=== PATIENT | male | born 2005 | race Caucasian/White ===

== ENCOUNTER 2024-02-23 17:24 | Emergency (ER) | payer OTHER, SELFPAY ==
--- NOTE | ~2024-02-23 | CT_ITS ---
EXAMINATION: CT HEAD WITHOUT CONTRAST CLINICAL INFORMATION: Head injury. COMPARISON: None available. TECHNIQUE: Contiguous axial imaging was performed from the skull base to vertex without intravenous administration of contrast. This CT examination was performed using dose optimization techniques as appropriate, variously including the following: *Automated exposure control *Adjustment of mA and/or kV according to patient size (this includes techniques or standardized protocols for targeted exams where dose is matched to indication/reason for exam; i.e. extremities or head) *Use of iterative reconstruction technique DLP: 651 mGy-cm FINDINGS: There is no acute intracranial hemorrhage. There is no evidence of acute/subacute cerebral or cerebellar infarction. There is no midline shift or mass effect. There is no extra-axial fluid collection. The ventricles are normal in size. The orbits are symmetric and within normal limits. The calvarium is intact. The visualized paranasal sinuses are clear. The mastoid air cells are clear. CT/CT head/brain wo IV con IMPRESSION: No acute intracranial pathology.
--- NOTE | ~2024-02-23 | CT_ITS ---
EXAMINATION: CT FACIAL BONES WITHOUT CONTRAST CLINICAL INFORMATION: Nasal bone injury COMPARISON: None available. TECHNIQUE: Noncontrast computed tomography of the facial bones was performed. This CT examination was performed using dose optimization techniques as appropriate, variously including the following: *Automated exposure control *Adjustment of mA and/or kV according to patient size (this includes techniques or standardized protocols for targeted exams where dose is matched to indication/reason for exam; i.e. extremities or head) *Use of iterative reconstruction technique DLP: 389 mGy-cm FINDINGS: There is no acute facial bone fracture. There is subcutaneous gas within the soft tissue overlying the bridge of the nose. The paranasal sinuses are well aerated. The nasal septum is deviated towards the left side. The orbits are symmetric and within normal limits. The ocular globes are intact. The visualized brain parenchyma is normal in appearance. The mastoid air cells are clear. CT/CT facial bones wo IV con IMPRESSION: No acute facial bone fracture. There is subcutaneous gas within the soft tissue overlying the bridge of the nose.
[2024-02-23 17:44] VITALS: BP 108/54; PULSE 84; RESP 16; TEMP 36.1; O2SAT 95; BMI 25.7
--- NOTE | 2024-02-23 17:47 | ED_ITS ---
HPI - Head Injury General Chief complaint: Wound/Laceration Stated complaint: nosec laceration Time Seen by Provider: 02/23/24 23:00 Source: patient and family (mom) Mode of arrival: ambulatory Limitations: no limitations History of Present Illness ED Provider: HETAL ALONSO PA-C HPI Narrative: 18 year old male with no significant past medical history presents to the ED today for evaluation laceration to nasal bridge sustained prior to arrival. Patient states that he was climbing metal stairs while at [facility] when he tripped on the last step at the top of the stairs, causing him to strike his face along the metal bar. Admits laceration to nasal bridge immediately began bleeding. Denies initial loss of consciousness however states that he passed out on the car ride to the ED. reports 1 episode of vomiting. Bleeding controlled upon arrival to ED. Mom is unsure of last tetanus vaccination. Denies headache, dizziness, vision changes, pain with eye movements, confusion, behavioral changes, difficulty breathing. Related Data Allergies Allergy/AdvReac Type Severity Reaction Status Date / Time amoxicillin AdvReac Rash Verified 02/23/24 17:47 Review of Systems 2 Review of Systems: Constitutional: No fever, chills, fatigue, night sweats, weight changes ENT/Mouth: No ear pain, hearing loss, nasal congestion, sinus pain, rhinorrhea, sore throat Eyes: No eye pain, swelling, redness, vision changes, discharge Cardio: No chest pain, palpitations, BROTHERS, orthopnea, peripheral edema Pulm: No SOB, cough, sputum, wheezing, dyspnea, hemoptysis GI: No nausea, vomiting, hematemesis, abdominal pain, diarrhea, constipation, hematochezia, melena : No irregular bleeding, dysuria, frequency, urgency, hesitancy, hematuria, flank pain, urinary flow changes, urinary incontinence or retention MSK: No back pain, neck pain, joint pain, myalgias Skin: No lesions, rashes, +nose laceration Neuro: No weakness, numbness, paresthesias, LOC, dizziness, headache Psych: No anxiety/panic, depression, SI/HI, AH/VH All other systems reviewed and are negative. [facility] Past Medical History Attestation statement: The following information was validated with the patient. Source: old records reviewed and nursing notes reviewed Social History Social History Advance Directives: No Advance Directives Information Provided: No Do you have a plan to hurt others: No Plan Physical Exam 2 Vital Signs: Vital Signs: Last Vital Signs Temp 96.9 F 02/23/24 17:44 Pulse 84 02/23/24 17:44 Resp 16 02/23/24 17:44 BP 108/54 L 02/23/24 17:44 Pulse Ox 95 02/23/24 17:44 O2 Del Method Room Air 02/23/24 17:44 BMI result Body Mass Index 25.7 Vital signs stable, afebrile. Const: General: cooperative, healthy appearing, comfortable and no acute distress Orientation/consciousness: patient oriented x3 Limitations: no limitations HEENT: Head: Yes normal to inspection and Yes No palpable skull fracture present General nose exam: Normal septum present and no epistaxis Face and sinus: Yes face symmetric, No crepitus and No Facial tenderness on exam of face and sinuses Face images: 1. 1cm linear superficial laceration noted to nasal bridge. no active bleeding. coagulated blood noted. no surrounding erythema. no deformity. Eyes: General: appearance normal, both eyes and all related structures C onjunctivae: conjunctivae normal Sclerae: sclerae normal Pupils: Equal, round and reactive pupils present EOM: EOMs intact bilaterally Neck: Other: No midline cervical spinous tenderness or step-off deformity Neck: Yes normal visual inspection and Yes full ROM Resp: Effort & Inspection: normal respiratory effort and able to speak in complete sentences Auscultation: clear to auscultation bilaterally Cardio: Rate: regular rate Rhythm: regular rhythm Skin: Other: + see above. Neuro: General: patient oriented x3, gait normal, tone normal, moves all extremities and no focal motor deficits Cranial nerves: Yes Equal, round and reactive pupils present Extrem: General: Yes normal to inspection Course Course Course Narrative: This is an RME: Additional HPI, ROS, PE not included below will be deferred to primary provider. RME assessment and note performed by: Vanessa Solis PA-C This is a 18-year-old male who presents emergency department with complaints of nose laceration and head injury which occurred around 4:00 p.m. this afternoon. Patient states he was walking up a set of stairs in the stairs above him was lower and he struck his head on the stairs and lacerated his nose. He states that he did not lose consciousness however states that he did follow up dizziness and vomiting. He states that the car ride he also lost consciousness for several seconds. There is a laceration noted to the bridge of his nose with tenderness palpation, no active bleeding Plan: CT head, CT facial bones, plus or minus stitches. Reevaluation(s) Reevaluation #1: 1125-- CT head without bleed. CT facial bones showing minimal amount of subcutaneous gas within the soft tissue overlying the bridge of the nose. On exam, there is no crepitus or deformity. Dermabond and steristrips applied to the laceration. Sutures are not warranted at this time. Patient likely has concussion. Educated on rest and hydration. Patient has remained stable throughout ED visit today. Discussed worrisome signs and symptoms and when to return to the ED. All questions answered at this time. Patient is agreeable with disposition and stable for discharge. Medical Decision Making Medical Decision Making MDM Narrative: 18 year old male with no significant past medical history presents to the ED today for evaluation laceration to nasal bridge sustained prior to arrival. Vital signs stable, afebrile. He is nontoxic-appearing and in no acute distress. AAO x3. EOMs intact without entrapment bilaterally. PERRLA. Exam nonfocal. No septal hematoma. 1cm linear superficial laceration noted to nasal bridge. no active bleeding. coagulated blood noted. no surrounding erythema. no deformity. ambulating with steady gait. no palpable skull fracture. Differential diagnosis includes concussion, headache, laceration, abrasion. Unlikely ICH, CVA/TIA, facial fracture, ocular entrapment, blow out fracture. Plan for repair, tdap booster, and discharge. Differential Diagnosis Differential Diagnoses: The differential diagnosis associated with the presentation includes as above. Admission/Observation Not indicated Independent Interpretation I performed an independent interpretation of an: CT Scan Interpretation: CT scan head/brain without bleed, agree with radiologist's interpretation. CT scan facial bones without acute fracture, agree with radiologist's interpretation. Radiology Impression Discussion of test interpretation with radiology: I have reviewed the radiologist's reading. Radiologist Impression: EXAMINATION: CT HEAD WITHOUT CONTRAST CLINICAL INFORMATION: Head injury. COMPARISON: None available. TECHNIQUE: Contiguous axial imaging was performed from the skull base to vertex without intravenous administration of contrast. This CT examination was performed using dose optimization techniques as appropriate, variously including the following: *Automated exposure control *Adjustment of mA and/or kV according to patient size (this includes techniques or standardized protocols for targeted exams where dose is matched to indication/reason for exam; i.e. extremities or head) *Use of iterative reconstruction technique DLP: 651 mGy-cm FINDINGS: There is no acute intracranial hemorrhage. There is no evidence of acute/subacute cerebral or cerebellar infarction. There is no midline shift or mass effect. There is no extra-axial fluid collection. The ventricles are normal in size. The orbits are symmetric and within normal limits. The calvarium is intact. The visualized paranasal sinuses are clear. The mastoid air cells are clear. CT/CT head/brain wo IV con IMPRESSION: No acute intracranial pathology. EXAMINATION: CT FACIAL BONES WITHOUT CONTRAST CLINICAL INFORMATION: Nasal bone injury COMPARISON: None available. TECHNIQUE: Noncontrast computed tomography of the facial bones was performed. This CT examination was performed using dose optimization techniques as appropriate, variously including the following: *Automated exposure control *Adjustment of mA and/or kV according to patient size (this includes techniques or standardized protocols for targeted exams where dose is matched to indication/reason for exam; i.e. extremities or head) *Use of iterative reconstruction technique DLP: 389 mGy-cm FINDINGS: There is no acute facial bone fracture. There is subcutaneous gas within the soft tissue overlying the bridge of the nose. The paranasal sinuses are well aerated. The nasal septum is deviated towards the left side. The orbits are symmetric and within normal limits. The ocular globes are intact. The visualized brain parenchyma is normal in appearance. The mastoid air cells are clear. CT/CT facial bones wo IV con IMPRESSION: No acute facial bone fracture. There is subcutaneous gas within the soft tissue overlying the bridge of the nose. Independent Historian Clinical information obtained from an independent historian. History obtained from or confirmed by: Parent (mom) Prescription Management I considered prescription management with: Pain Medication Social Determinants Patient?s care significantly limited by Social Determinants of Health including: Other Social Determinant of Health Critical Care Time Critical Care Time Critical Care Time: No Discharge Plan Discharge Clinical Impression: Laceration of nose Qualifiers: Encounter type: initial encounter Qualified Code(s): S01.21XA - Laceration without foreign body of nose, initial encounter Concussion Qualifiers: Encounter type: initial encounter Loss of consciousness presence/duration: w ithout LOC Qualified Code(s): S06.0X0A - Concussion without loss of consciousness, initial encounter Patient Disposition: Home, Self-Care Instructions: Laceration (ED), Concussion (ED), Skin Adhesive Care (ED), Steristrips (ED) Additional Instructions: You were evaluated in the ED today for nose laceration following head strike. The CT scans of your head and facial bones do not show fracture or bleed. The laceration was repaired with skin glue and steri-strips. Do not pick at the area. The steri-strips will fall off on their own. Your tetanus was updated today. Additionally, you likely have a concussion. Make sure you are getting plenty of rest and drinking plenty of fluids. You may take motrin/tylenol at home for pain/ discomfort. Follow up with PCP as needed. Return with new or worsening symptoms such as confusion, intractable vomiting, behavioral changes. In the case of an emergency call 911. Referrals: Doreen Gomes MD [Primary Care Provider] - Stand Alone Forms: Work/School Release Print Language: [place]
[2024-02-23] MEDS: Diphth,Pertus(ACell),Tet Adult 0.5 ML SYRINGE IM (23:33)
[2024-02-23 23:38] VITALS: BP 124/50; PULSE 60; RESP 18; TEMP 36.8
== END 2024-02-23 23:39 | disposition home or self-care (01) ==
PROVIDERS: Emergency Provider Emergency Medicine; PCP Pediatrics
DX: S01.21XA Laceration without foreign body of nose, initial encounter (principal); S06.0X0A Concussion without loss of consciousness, initial encounter; W17.89XA Other fall from one level to another, initial encounter; Y93.89 Activity, other specified; Y92.89 Other specified places as the place of occurrence of the external cause; Y99.9 Unspecified external cause status; Z23 Encounter for immunization
CPT/HCPCS: 12011; 70450; 70486; 90471; 90715; 99283; 99284